=== PATIENT | female | born 1945 | race Caucasian/White ===

== ENCOUNTER 2021-03-24 15:02 | Outpatient (CLI) | payer MEDICARE ==
[2021-03-24 16:24] LABS: Hemoglobin 12.8 g/dL (12.0-15.5); Mean Corpuscular HGB CONC 31.8 g/dL (32.0-36.0); Mean Corpuscular Hemoglobin 28.3 pg (27.0-33.0); Mean Corpuscular Volume 88.7 fl (81.6-98.3); Mean Platelet Volume 10.4 fl (7.4-10.4); Platelet Count 192 10x3/uL (150-450); RBC Distribution Width 13.6 % (11.5-14.5); Red Blood Cell (RBC) Count 4.53 10x6/uL (3.90-5.03); White Blood Cell (WBC) Count 7.7 10x3/uL (3.5-10.5)
[2021-03-24 16:46] LABS: Anion Gap 14 mmol/L (10-20); BUN (Urea Nitrogen) 14 mg/dL (9.8-20.1); Calc. Creatinine Clearance 0 mL/min (70-130); Calcium 8.9 mg/dL (7.8-10.44); Carbon Dioxide 26 mmol/L (23-31); Chloride 98 mmol/L (98-107); Glucose 85 mg/dL (83-110); Sodium 134 mmol/L (136-145)
[2021-03-24 16:50] LABS: Prothrombin Time 11.3 sec (9.5-12.1)
[2021-03-25 17:40] LABS: SARS-CoV-2 PCR by NAA Not Detected (NotDetected)
== END 2021-03-24 15:03 | disposition home or self-care (01) ==
LOC: LABBT 15:02
PROVIDERS: ATTEND Surgery
DX: Z01.818 Encounter for other preprocedural examination (principal); M48.062 Spinal stenosis, lumbar region with neurogenic claudication; M54.16 Radiculopathy, lumbar region; Z20.822 Contact with and (suspected) exposure to COVID-19
CPT/HCPCS: 80048; 85027; 85610; 85730; U0003; U0005; 93005; 93010

== ENCOUNTER 2021-03-27 06:09 | Observation (INO) | payer MEDICARE ==
[2021-03-24 10:19] VITALS: BMI 36.8
[2021-03-27] MEDS ORDERED: Fentanyl 250 MCG/5 ML VIAL ONE (06:16)
[2021-03-27] MEDS ORDERED: SUGAMMADEX SODIUM 200 MG/2 ML VIAL ONE (06:16)
[2021-03-27] MEDS ORDERED: Thrombin 5000 UNITS/5 ML VIAL ONE (06:29)
[2021-03-27] MEDS ORDERED: Fentanyl 100 MCG/2 ML VIAL ONE ×3 (07:14→11:26)
[2021-03-27] MEDS ORDERED: ceFAZolin 2 GM/Dextrose 50 ML IVPB ONE (07:26)
[2021-03-27] MEDS ORDERED: Dexamethasone 20 MG/5 ML VIAL ONE (07:41)
[2021-03-27] MEDS ORDERED: Rocuronium Bromide 10 MG/ML (10ML VIAL) ONE (07:41)
[2021-03-27] MEDS ORDERED: PROPOFOL 200 MG/20 ML VIAL ONE (07:41)
[2021-03-27] MEDS ORDERED: ePHEDrine 50 MG/ML VIAL ONE (07:41)
[2021-03-27] MEDS ORDERED: Lidocaine 1% PF 5 ML VIAL ONE (07:41)
[2021-03-27] MEDS ORDERED: Glycopyrrolate 0.2 MG/ML 5 ML SYRINGE ONE (07:41)
[2021-03-27] MEDS ORDERED: PHENYLEPHRINE-NS 100 MCG/ML 10 ML SYRINGE ONE (07:41)
[2021-03-27] MEDS ORDERED: Ondansetron PF 4 MG/2 ML Vial ONE (07:41)
[2021-03-27] MEDS ORDERED: Promethazine HCl 25 MG/ML VIAL IM PRN (10:35)
[2021-03-27] MEDS ORDERED: Promethazine HCl 25 MG/ML VIAL IVPB PRN (10:35)
[2021-03-27] MEDS ORDERED: Ondansetron HCl/PF 4 MG/2 ML Vial IVP PRN (10:35)
[2021-03-27] MEDS ORDERED: traMADol HCl 50 MG TAB PO PRN (10:49)
[2021-03-27] MEDS ORDERED: Acetaminophen 325 MG TAB PO PRN (10:49)
[2021-03-27] MEDS ORDERED: clonazePAM 1 MG TAB PO PRN (10:56)
[2021-03-27] MEDS ORDERED: Methocarbamol 500 MG TAB PO PRN (10:56)
[2021-03-27] MEDS ORDERED: hydrALAZINE 20 MG/ML VIAL SLOW IVP PRN (10:57)
[2021-03-27] MEDS ORDERED: Morphine 4 MG/ML VIAL SLOW IVP PRN (11:40)
[2021-03-27] MEDS: Sodium Chloride 0.9% 1,000 ML IV SCH (12:47)
[2021-03-27] MEDS: HYDROcodone/Acetaminophen 7.5/325 mg Tablet PO PRN ×2 (12:49→20:15)
[2021-03-27] MEDS: Acetaminophen/Codeine 30-300mg Tablet PO PRN (15:53)
[2021-03-27] MEDS ORDERED: ceFAZolin 2 GM/Dextrose 50 ML 2 GM in Premix Bag 1 BAG IVPB SCH (16:00)
[2021-03-27] MEDS: ceFAZolin 2 GM/Dextrose 50 ML 2 GM in Premix Bag 1 BAG IVPB SCH (18:34)
[2021-03-28] MEDS: Acetaminophen/Codeine 30-300mg Tablet PO PRN ×2 (00:16→10:04)
[2021-03-28] MEDS: ceFAZolin 2 GM/Dextrose 50 ML 2 GM in Premix Bag 1 BAG IVPB SCH (02:04)
[2021-03-28] MEDS: Sodium Chloride 0.9% 1,000 ML IV SCH (02:14)
[2021-03-28] MEDS: HYDROcodone/Acetaminophen 7.5/325 mg Tablet PO PRN ×2 (05:36→12:27)
[2021-03-28] MEDS ORDERED: Lisinopril 20 MG TAB PO SCH (09:00)
[2021-03-28] MEDS ORDERED: Loratadine 10 MG TAB PO SCH (09:00)
[2021-03-28 12:45] VITALS: BP 146/75; TEMP 98.5
== END 2021-03-28 13:00 | disposition home or self-care (01) ==
LOC: SDC 06:09 → SURG B 10:49
PROVIDERS: ADMIT Surgery; ATTEND Surgery
PROC: 01NB0ZZ Release Lumbar Nerve, Open Approach (ICD-10-PCS; principal; 2021-03-27)
DX: M48.062 Spinal stenosis, lumbar region with neurogenic claudication (principal); M54.16 Radiculopathy, lumbar region; Z79.1 Long term (current) use of non-steroidal anti-inflammatories (NSAID); Z79.899 Other long term (current) drug therapy; Z91.040 Latex allergy status
CPT/HCPCS: 76000; 96365; 96376; G0378; J0690; J1100; J2405; J2704; J3010; J3370; J3490; J7050

== ENCOUNTER 2022-02-18 12:08 | Outpatient (CLI) | payer MEDICARE, OTHER | END 2022-02-18 12:09 | disposition home or self-care (01) | LOC: RAD 12:08 | PROVIDERS: ATTEND Anesthesiology Pain Medicine | DX: M16.11 Unilateral primary osteoarthritis, right hip (principal) ==

== ENCOUNTER 2022-05-19 11:17 | Outpatient (CLI) | payer MEDICARE, OTHER | END 2022-05-19 11:18 | disposition home or self-care (01) | LOC: RAD 11:17 | PROVIDERS: ATTEND Anesthesiology Pain Medicine | DX: M47.816 Spondylosis without myelopathy or radiculopathy, lumbar region (principal) | CPT/HCPCS: 72120 ==

== ENCOUNTER 2022-12-07 05:34 | Inpatient (IN) | payer OTHER ==
[2022-12-07] MEDS ORDERED: Vancomycin 1 GM VIAL ONE (06:39)
[2022-12-07] MEDS ORDERED: Thrombin 5000 UNITS/5 ML VIAL ONE (06:39)
[2022-12-07] MEDS ORDERED: fentaNYL PF 100 MCG/2 ML SYRINGE ONE (06:44)
[2022-12-07 06:45] LABS: #Eosinphils 0.2 thou/uL (0.0-0.7); #Monocytes 0.9 thou/uL (0.11-0.59); #Neutrophils 3.7 thou/uL (1.40-6.50); %Basophils 0.6 % (0.0-1.0); %Eosinophils 3.1 % (0.0-10.0); %Lymphocytes 23.8 % (21.0-51.0); %Monocytes 14.2 % (0.0-10.0); Hematocrit 31.9 % (36.0-47.0); Hemoglobin 10.1 g/dL (12.0-16.0); Mean Corpuscular HGB CONC 31.7 g/dL (32.0-36.0); Mean Corpuscular Hemoglobin 26.3 pg (27.0-31.0); Mean Corpuscular Volume 83.1 fl (78.0-98.0); Mean Platelet Volume 9.1 fL (7.4-10.4); Platelet Count 182 10x3/uL (130-400); RBC Distribution Width 18.2 % (11.5-14.5); Red Blood Cell (RBC) Count 3.84 mill/uL (4.20-5.40); White Blood Cell (WBC) Count 6.4 10x3/uL (4.8-10.8)
[2022-12-07] MEDS ORDERED: Sodium Chloride 0.9% 100 ML ONE (06:57)
[2022-12-07] MEDS ORDERED: CEFAZOLIN 2 GM VIAL ONE (06:57)
[2022-12-07 07:03] LABS: INR-International Normal Ratio 1.1; Prothrombin Time 14.9 sec (12.0-14.7)
[2022-12-07 07:04] LABS: PTT 30.7 sec (22.9-36.1)
[2022-12-07 07:14] LABS: Anion Gap 16 mmol/L (10-20); BUN (Urea Nitrogen) 8 mg/dL (9.8-20.1); Calc. Creatinine Clearance 98 mL/min (70-130); Carbon Dioxide 26 mmol/L (23-31); Chloride 96 mmol/L (98-107); Estimated GFR 78; Glucose 109 mg/dL (83-110); Sodium 135 mmol/L (136-145)
[2022-12-07] MEDS ORDERED: Midazolam HCl 2 mg/2 ml Vial ONE (07:25)
[2022-12-07] MEDS ORDERED: Lidocaine 1% PF 5 ML VIAL ONE (07:33)
[2022-12-07] MEDS ORDERED: PROPOFOL 200 MG/20 ML VIAL ONE (07:33)
[2022-12-07] MEDS ORDERED: Dexamethasone 20 MG/5 ML VIAL ONE (07:33)
[2022-12-07] MEDS ORDERED: Ondansetron PF 4 MG/2 ML Vial ONE ×3 (07:33→13:22)
[2022-12-07] MEDS ORDERED: PHENYLEPHRINE-NS 100 MCG/ML 10 ML SYRINGE ONE (07:33)
[2022-12-07] MEDS ORDERED: Rocuronium Bromide 10 MG/ML (10ML VIAL) ONE (07:33)
[2022-12-07] MEDS ORDERED: Potassium Chloride 20 MEQ/100 ML PREMIX BAG ONE (08:26)
[2022-12-07] MEDS ORDERED: HYDROmorphone 2 MG/ML VIAL ONE (10:54)
[2022-12-07 12:09] LABS: #Monocytes 0.2 thou/uL (0.11-0.59); #Neutrophils 6.1 thou/uL (1.40-6.50); %Basophils 0.4 % (0.0-1.0); %Eosinophils 0.3 % (0.0-10.0); %Lymphocytes 17.3 % (21.0-51.0); %Monocytes 3.1 % (0.0-10.0); %Neutrophils 78.5 % (42.0-75.0); Hematocrit 29.3 % (36.0-47.0); Hemoglobin 9.3 g/dL (12.0-16.0); Mean Corpuscular HGB CONC 31.7 g/dL (32.0-36.0); Mean Corpuscular Hemoglobin 26.3 pg (27.0-31.0); Mean Platelet Volume 9.8 fL (7.4-10.4); Platelet Count 233 10x3/uL (130-400); RBC Distribution Width 18.3 % (11.5-14.5); Red Blood Cell (RBC) Count 3.53 mill/uL (4.20-5.40); White Blood Cell (WBC) Count 7.8 10x3/uL (4.8-10.8)
[2022-12-07] MEDS ORDERED: SUGAMMADEX SODIUM 200 MG/2 ML VIAL ONE (12:58)
[2022-12-07] MEDS ORDERED: Bisacodyl 10 MG SUPP PR PRN (13:56)
[2022-12-07] MEDS ORDERED: Promethazine HCl 25 MG/ML VIAL IVPB PRN (13:56)
[2022-12-07] MEDS ORDERED: diphenhydrAMINE 25 MG CAP PO PRN (13:56)
[2022-12-07] MEDS ORDERED: Mineral Oil ENEMA PR PRN (13:59)
[2022-12-07] MEDS ORDERED: hydrALAZINE 20 MG/ML VIAL SLOW IVP PRN (13:59)
[2022-12-07] MEDS ORDERED: Naloxone HCl 0.4 mg/ml Vial IV PRN (14:12)
[2022-12-07] MEDS ORDERED: diphenhydrAMINE 50 MG/ML VIAL IM PRN (14:12)
[2022-12-07] MEDS ORDERED: Ondansetron PF 4 MG/2 ML Vial IVP PRN (14:12)
[2022-12-07] MEDS ORDERED: diphenhydrAMINE 50 MG/ML VIAL IVP PRN (14:12)
[2022-12-07] MEDS ORDERED: FENTANYL 500 MCG/10 ML VIAL 2,000 MCG in Sodium Chloride 0.9% 60 ML IV PRN (14:12)
[2022-12-07] MEDS ORDERED: Promethazine HCl 25 MG/ML VIAL IM PRN ×2 (14:12)
[2022-12-07] MEDS ORDERED: Ondansetron HCl/PF 4 MG/2 ML Vial IVP PRN (14:12)
[2022-12-07] MEDS ORDERED: ACTIVE PCA FS PRN (14:15)
[2022-12-07] MEDS ORDERED: fentaNYL 50 mcg/mL 1 mL Vial ONE ×2 (14:32→14:48)
[2022-12-07] MEDS: CEFAZOLIN 2 GM in Sodium Chloride 0.9% 100 ML IVPB SCH ×2 (15:20→22:29)
[2022-12-07] MEDS ORDERED: Ketorolac Tromethamine 30 MG/ML VIAL IVP SCH (18:00)
[2022-12-07] MEDS ORDERED: Ketorolac Tromethamine 30 MG/ML VIAL ONE (18:23)
[2022-12-07] MEDS: Sodium Chloride 0.9% 1,000 ML IV SCH (20:19)
[2022-12-07 21:18] LABS: Hemoglobin 7.5 g/dL (12.0-16.0)
[2022-12-07] MEDS: Lisinopril 20 MG TAB PO SCH (22:28)
[2022-12-07] MEDS: Docusate 100 MG CAP PO SCH (22:29)
[2022-12-07] MEDS: DULoxetine 20 MG CAP PO SCH (22:29)
[2022-12-08] MEDS: Sodium Chloride 0.9% 1,000 ML IV SCH ×2 (06:02→15:25)
[2022-12-08] MEDS: CEFAZOLIN 2 GM in Sodium Chloride 0.9% 100 ML IVPB SCH ×2 (06:03→15:22)
[2022-12-08 06:33] LABS: #Monocytes 1.2 thou/uL (0.11-0.59); #Neutrophils 8.3 thou/uL (1.40-6.50); %Basophils 0.1 % (0.0-1.0); %Lymphocytes 10.4 % (21.0-51.0); %Monocytes 11.4 % (0.0-10.0); %Neutrophils 77.5 % (42.0-75.0); Hematocrit 22.8 % (36.0-47.0); Hemoglobin 7.3 g/dL (12.0-16.0); Mean Corpuscular Volume 84.4 fl (78.0-98.0); Mean Platelet Volume 9.8 fL (7.4-10.4); Platelet Count 168 10x3/uL (130-400); RBC Distribution Width 17.2 % (11.5-14.5); White Blood Cell (WBC) Count 10.7 10x3/uL (4.8-10.8)
[2022-12-08 06:58] LABS: Anion Gap 12 mmol/L (10-20); BUN (Urea Nitrogen) 11 mg/dL (9.8-20.1); Calc. Creatinine Clearance 104 mL/min (70-130); Carbon Dioxide 22 mmol/L (23-31); Chloride 98 mmol/L (98-107); Estimated GFR 83; Glucose 117 mg/dL (83-110); Potassium 4.3 mmol/L (3.5-5.1); Sodium 128 mmol/L (136-145)
[2022-12-08] MEDS: Milk Of Magnesia 30 ML UDCUP PO PRN (08:42)
[2022-12-08] MEDS: Docusate 100 MG CAP PO SCH ×2 (08:42→20:37)
[2022-12-08] MEDS: Loratadine 10 MG TAB PO SCH (08:42)
[2022-12-08] MEDS: Isosorbide Mononitrate 30 MG ER.TAB PO SCH (08:42)
[2022-12-08] MEDS: Lisinopril 20 MG TAB PO SCH ×2 (08:42→20:36)
[2022-12-08] MEDS ORDERED: HYDROcodone/Acetaminophen 5/325 mg Tablet PO PRN (09:12)
[2022-12-08] MEDS ORDERED: HYDROcodone/Acetaminophen 10/325 mg Tablet PO PRN (09:12)
[2022-12-08] MEDS ORDERED: Milk Of Magnesia 30 ML UDCUP PO PRN (09:12)
[2022-12-08] MEDS ORDERED: Magnesium Citrate 300 ML BOT PO PRN (09:12)
[2022-12-08] MEDS: Acetaminophen/Codeine 30-300mg Tablet PO PRN ×2 (15:25→20:37)
[2022-12-08] MEDS: DULoxetine 20 MG CAP PO SCH (20:37)
[2022-12-08] MEDS: Diazepam 5 MG TAB PO PRN (20:37)
[2022-12-09] MEDS: CEFAZOLIN 2 GM in Sodium Chloride 0.9% 100 ML IVPB SCH ×4 (00:02→23:19)
[2022-12-09] MEDS: Ondansetron PF 4 MG/2 ML Vial IVP PRN (00:03)
[2022-12-09] MEDS: Acetaminophen/Codeine 30-300mg Tablet PO PRN ×2 (06:01→12:47)
[2022-12-09] MEDS: Sodium Chloride 0.9% 1,000 ML IV SCH ×2 (06:05→18:32)
[2022-12-09 07:28] LABS: #Eosinphils 0.1 thou/uL (0.0-0.7); #Monocytes 1.6 thou/uL (0.11-0.59); %Basophils 0.2 % (0.0-1.0); %Lymphocytes 17.6 % (21.0-51.0); %Monocytes 13.3 % (0.0-10.0); %Neutrophils 67.5 % (42.0-75.0); Hematocrit 30.2 % (36.0-47.0); Hemoglobin 10.1 g/dL (12.0-16.0); Mean Corpuscular HGB CONC 33.4 g/dL (32.0-36.0); Mean Corpuscular Volume 83.7 fl (78.0-98.0); Mean Platelet Volume 9.8 fL (7.4-10.4); Platelet Count 171 10x3/uL (130-400); RBC Distribution Width 16.2 % (11.5-14.5); Red Blood Cell (RBC) Count 3.61 mill/uL (4.20-5.40); White Blood Cell (WBC) Count 11.9 10x3/uL (4.8-10.8)
[2022-12-09 07:42] LABS: Anion Gap 13 mmol/L (10-20); BUN (Urea Nitrogen) 14 mg/dL (9.8-20.1); Calc. Creatinine Clearance 100 mL/min (70-130); Calcium 8.1 mg/dL (7.8-10.44); Carbon Dioxide 23 mmol/L (23-31); Chloride 98 mmol/L (98-107); Estimated GFR 80; Glucose 106 mg/dL (83-110); Potassium 4.1 mmol/L (3.5-5.1); Sodium 130 mmol/L (136-145)
[2022-12-09] MEDS: Docusate 100 MG CAP PO SCH ×2 (08:25→21:12)
[2022-12-09] MEDS: Loratadine 10 MG TAB PO SCH (08:26)
[2022-12-09] MEDS: Milk Of Magnesia 30 ML UDCUP PO PRN (13:50)
[2022-12-09] MEDS: Diazepam 5 MG TAB PO PRN (13:50)
[2022-12-09] MEDS: Lisinopril 20 MG TAB PO SCH ×2 (15:33→21:12)
[2022-12-09] MEDS: Isosorbide Mononitrate 30 MG ER.TAB PO SCH (15:33)
[2022-12-09] MEDS ORDERED: Bacitracin Zinc Ointment 30 gm TUBE TOP PRN (17:32)
[2022-12-09] MEDS: DULoxetine 20 MG CAP PO SCH (21:12)
[2022-12-10] MEDS: Sodium Chloride 0.9% 1,000 ML IV SCH ×2 (05:04→20:10)
[2022-12-10] MEDS: Acetaminophen/Codeine 30-300mg Tablet PO PRN ×3 (05:23→16:14)
[2022-12-10] MEDS: CEFAZOLIN 2 GM in Sodium Chloride 0.9% 100 ML IVPB SCH ×3 (06:01→23:04)
[2022-12-10] MEDS ORDERED: Benzocaine/Menthol 1 LOZ LOZ PO PRN (08:04)
[2022-12-10] MEDS ORDERED: Acetaminophen/Codeine 30-300mg Tablet PO PRN (08:04)
[2022-12-10] MEDS ORDERED: Benzonatate 100 MG CAP PO PRN (08:04)
[2022-12-10] MEDS ORDERED: Bisacodyl 10 MG SUPP PR PRN (08:07)
[2022-12-10] MEDS ORDERED: Mineral Oil ENEMA PR PRN (08:07)
[2022-12-10] MEDS ORDERED: Bisacodyl 10 MG SUPP PR SCH (08:15)
[2022-12-10] MEDS: Lisinopril 20 MG TAB PO SCH ×2 (10:22→20:11)
[2022-12-10] MEDS: Isosorbide Mononitrate 30 MG ER.TAB PO SCH (10:23)
[2022-12-10] MEDS: Docusate 100 MG CAP PO SCH ×2 (10:23→20:11)
[2022-12-10] MEDS: Loratadine 10 MG TAB PO SCH (10:23)
[2022-12-10] MEDS: Ondansetron PF 4 MG/2 ML Vial IVP PRN (10:32)
[2022-12-10] MEDS: Dexamethasone 4 MG TAB PO SCH ×3 (12:53→23:40)
[2022-12-10] MEDS: diphenhydrAMINE 25 MG CAP PO PRN (18:19)
[2022-12-10] MEDS: DULoxetine 20 MG CAP PO SCH (20:11)
[2022-12-11] MEDS: Dexamethasone 1 MG TAB PO SCH ×3 (06:01→17:25)
[2022-12-11] MEDS: CEFAZOLIN 2 GM in Sodium Chloride 0.9% 100 ML IVPB SCH ×3 (06:44→22:31)
[2022-12-11] MEDS: Acetaminophen/Codeine 30-300mg Tablet PO PRN ×3 (07:48→17:25)
[2022-12-11] MEDS: Sodium Chloride 0.9% 1,000 ML IV SCH ×2 (10:30→22:38)
[2022-12-11] MEDS: Isosorbide Mononitrate 30 MG ER.TAB PO SCH (10:48)
[2022-12-11] MEDS: Docusate 100 MG CAP PO SCH ×2 (10:48→20:18)
[2022-12-11] MEDS: Loratadine 10 MG TAB PO SCH (10:49)
[2022-12-11] MEDS: Lisinopril 20 MG TAB PO SCH ×2 (10:49→20:18)
[2022-12-11] MEDS: Ondansetron PF 4 MG/2 ML Vial IVP PRN (10:54)
[2022-12-11] MEDS: DULoxetine 20 MG CAP PO SCH (20:18)
[2022-12-11] MEDS: Diazepam 5 MG TAB PO PRN (20:18)
[2022-12-12] MEDS: Dexamethasone 1 MG TAB PO SCH ×4 (00:14→18:28)
[2022-12-12] MEDS: Milk Of Magnesia 30 ML UDCUP PO PRN (00:14)
[2022-12-12] MEDS: Diazepam 5 MG TAB PO PRN (00:16)
[2022-12-12] MEDS: diphenhydrAMINE 25 MG CAP PO PRN ×3 (05:34→18:28)
[2022-12-12] MEDS: CEFAZOLIN 2 GM in Sodium Chloride 0.9% 100 ML IVPB SCH ×3 (06:05→23:56)
[2022-12-12] MEDS: Lisinopril 20 MG TAB PO SCH ×2 (08:59→21:11)
[2022-12-12] MEDS: Docusate 100 MG CAP PO SCH ×2 (08:59→21:12)
[2022-12-12] MEDS: Loratadine 10 MG TAB PO SCH (09:00)
[2022-12-12] MEDS: Isosorbide Mononitrate 30 MG ER.TAB PO SCH (09:00)
[2022-12-12] MEDS: Acetaminophen/Codeine 30-300mg Tablet PO PRN ×2 (10:40→18:28)
[2022-12-12] MEDS: Acetaminophen 325 MG TAB PO PRN (12:05)
[2022-12-12 12:16] VITALS: BMI 377586.5
[2022-12-12] MEDS: Sodium Chloride 0.9% 1,000 ML IV SCH (12:58)
[2022-12-12] MEDS: DULoxetine 20 MG CAP PO SCH (21:11)
[2022-12-13] MEDS: Diazepam 5 MG TAB PO PRN
[2022-12-13] MEDS: Acetaminophen 325 MG TAB PO PRN
[2022-12-13] MEDS: Sodium Chloride 0.9% 1,000 ML IV SCH (02:51)
[2022-12-13] MEDS: Dexamethasone 1 MG TAB PO SCH ×3 (05:50→11:24)
[2022-12-13] MEDS: CEFAZOLIN 2 GM in Sodium Chloride 0.9% 100 ML IVPB SCH (06:01)
[2022-12-13] MEDS ORDERED: hydrALAZINE 20 MG/ML VIAL SLOW IVP SCH (08:18)
[2022-12-13] MEDS: Isosorbide Mononitrate 30 MG ER.TAB PO SCH (08:30)
[2022-12-13] MEDS: Loratadine 10 MG TAB PO SCH (08:30)
[2022-12-13] MEDS: Lisinopril 20 MG TAB PO SCH (08:30)
[2022-12-13] MEDS: Docusate 100 MG CAP PO SCH (08:30)
[2022-12-13] MEDS: Ondansetron PF 4 MG/2 ML Vial IVP PRN (08:31)
[2022-12-13 11:50] VITALS: BP 138/70; TEMP 97.6
== END 2022-12-13 14:45 | DRG 516 ==
LOC: SURG A 05:34
PROVIDERS: ADMIT Surgery; ATTEND Surgery
PROC: 01NB0ZZ Release Lumbar Nerve, Open Approach (ICD-10-PCS; 2022-12-07)
PROC: 0QH004Z Insertion of Internal Fixation Device into Lumbar Vertebra, Open Approach (ICD-10-PCS; 2022-12-07)
PROC: 30233N1 Transfusion of Nonautologous Red Blood Cells into Peripheral Vein, Percutaneous Approach (ICD-10-PCS; principal; 2022-12-08)
DX: M48.061 Spinal stenosis, lumbar region without neurogenic claudication (principal); E87.1 Hypo-osmolality and hyponatremia; M80.88XA Other osteoporosis with current pathological fracture, vertebra(e), initial encounter for fracture; M54.16 Radiculopathy, lumbar region; M43.16 Spondylolisthesis, lumbar region
CPT/HCPCS: 36415; 36430; 80048; 85025; 85610; 85730; 86850; 86900; 86901; 93005; 93010; 93970; 97139; C1713; C1776; C1889; J0360; J1100; J1170; J1200; J1885; J2250; J2405; J2704; J3010; J3370; J3480; J3490; J7050; J8540; P9016